=== PATIENT | male | born 1990 | race Caucasian/White ===

== ENCOUNTER 2019-08-03 22:26 | Inpatient (IN) ==
[2019-08-03] MEDS ORDERED: LORazepam 2 MG/ML VIAL (IM USE) IM STA (23:14)
[2019-08-03] MEDS ORDERED: HALOPERIDOL LACTATE 5 MG/ML 1 ML VIAL IM STA (23:14)
[2019-08-03 23:17] LABS: Appearance Urine Cloudy (Clear); Bilirubin Urine Negative (Negative); Blood Urine Negative (Negative); Color Urine Dark Yellow; Glucose Urine UA Negative (Negative); Ketones Urine 2+ (Negative); Leukocyte Esterase Urine Negative (Negative); Nitrite Urine Negative (Negative); Protein Urine Negative (Negative); RBC Urine Automated 0-4 /hpf (0-4); Specific Gravity Urine 1.017 (1.000-1.030); Urobilinogen Urine Negative (Negative); pH Urine 5.5 (4.5-7.5)
[2019-08-03 23:35] LABS: Basophils # (auto) 0.02 K/uL (0-0.2); Basophils % (auto) 0.2 %; Eosinophils # (auto) 0.01 K/uL (0-0.5); Eosinophils % (auto) 0.1 %; Hematocrit (blood only) 51.6 % (42-52); Immature Granulocytes # (auto) 0.02 K/uL (0.00-0.02); Immature Granulocytes % (auto) 0.2 %; Lymphocytes # (auto) 2.52 K/uL (1.2-3.4); Lymphocytes % (auto) 23.3 %; Mean Corpuscular Hemoglobin 32.4 pg (25-34); Mean Corpuscular Hgb Conc 34.9 g/dL (32-36); Mean Corpuscular Volume 92.8 fL (80-100); Mean Platelet Volume 9.7 fL (7.4-10.4); Monocytes # (auto) 1.08 K/uL (0.11-0.59); Neutrophils # (auto) 7.17 K/uL (1.4-6.5); Neutrophils % (auto) 66.2 %; Platelet Count 322 K/uL (130-400); RDW Coefficient of Variation 13.6 % (11.5-14.5); Red Blood Count 5.56 M/uL (4.7-6.1); White Blood Count 10.82 K/uL (4.8-10.8)
[2019-08-03 23:54] LABS: Amphetamines+Metham, Urine Pos (Neg); Barbiturates, Urine Neg (Neg); Benzodiazepine, Urine Neg (Neg); Cocaine, Urine Neg (Neg); MDMA (Ecstacy), Urine Pos (Neg); Methadone, Urine Neg (Neg); Mucus Urine Present (None Prsent); Opiate, Urine Neg (Neg); Phencyclidine, Urine Neg (Neg)
[2019-08-03 23:54] LABS: Alanine Aminotransferase 72 U/L (12-78); Albumin Level 4.8 gm/dl (3.4-5.0); Aspartate Aminotransferase 32 U/L (15-37); BUN Creatinine Ratio 11.9 (10-20); Blood Urea Nitrogen 12 mg/dl (7-18); Calcium 9.5 mg/dl (8.5-10.1); Carbon Dioxide 26 mmol/L (21-32); Chloride 102 mmol/L (98-107); Est GFR (African American) 116.8; Est GFR (Non-African American) 100.8; Glucose 104 mg/dl (70-99); Potassium 3.9 mmol/L (3.5-5.1); Sodium 136 mmol/L (136-145)
[2019-08-03 23:55] LABS: Bacteria Urine Automated 1+ (Negative); Calcium Oxalate Crystals Urine Present (None Prsent)
[2019-08-04 00:05] LABS: Albumin Globulin Ratio 1.1 (0.9-2); Alkaline Phosphatase 58 U/L (45-117); Bilirubin,Total 0.8 mg/dl (0.2-1); Globulin 4.2 gm/dl (2.5-4.0)
[2019-08-04 00:08] LABS: Acetaminophen < 2 ug/ml (10-30); Salicylate 3.2 mg/dl (2.8-20)
[2019-08-04] MEDS ORDERED: LORazepam 2 MG/4 ML VIAL IV STA ×3 (00:12→17:27)
[2019-08-04] MEDS ORDERED: DiphenhydrAMINE HCL 50 MG/ML VIAL IV STA (00:12)
[2019-08-04] MEDS ORDERED: SODIUM CHLORIDE 0.9% 1000ML 2,000 ML IV ONE (00:12)
[2019-08-04 00:40] LABS: Creatine Kinase 110 U/L (39-308)
--- NOTE | 2019-08-04 05:51 | Emergency Department Note ---
Entered by Seun Freedman acting as a scribe for ED Provider Note Name: Durga Winn Age: 29 Arrives Via: Walk in Informant: Patient CC: Mental health evaluation HPI: The patient is a 29 year old male who presents to the emergency department with a request for a mental health evaluation occurring tonight. The patient states that he has been sober for the last two years, except for the last few months when he has been intermittently using drugs. He notes that he is unsure which drugs he has been taking, but he reports that he last used five days ago. The patient states that police arrived at his house tonight because a friend reported that he tried to kill himself before. He notes that he was given carfentanyl to use in order to kill himself on the . He reports that people are out to get him, but he states that he does not want to say why. The patient states that he drank three beers today. ROS: See above HPI for pertinent positives & negatives. A total of 10 systems reviewed and were otherwise negative. Past Medical History: Denies Past Surgical History: Denies Family History: Denies Social History: Drinks alcohol, uses drugs, uses cigarettes Home Medications: None Allergies: Azithromycin Physical: Vitals: BP 154/93, Pulse 131, Resp 20, Temp 97.7 F, O2 sat 99 Exam: GENERAL: Patient is acutely agitated appearing, tangential, severely paranoid. EYES: No scleral icterus, unremarkable pupils. ENT: Mucous membranes moist, no nasal congestion. NECK: No masses appreciated, no meningismus, trachea is midline. RESPIRATORY: No dyspnea. Clear to auscultation and equal bilaterally. No wheeze, no rhonchi. CARDIOVASCULAR: Tachycardic and regular rhythm. No murmurs, rubs, gallops appreciated. GASTROINTESTINAL: Abdomen soft, non-tender, no peritonitis. Bowel sounds positive. No masses appreciated. BACK: No midline tenderness, no CVA tenderness EXTREMITIES: Normal motion all extremities, no cyanosis, no edema. NEUROLOGIC: Alert and oriented, no acute motor or sensory deficits, no focal weakness, cranial nerves grossly intact. SKIN: No rash, no jaundice, no diaphoresis. Psych: Tangential, paranoid, agitated, denies depression but describes being depressed, denies SI but admits suicide attempt, denies hallucinations but is looking around the room at things that are not there. ED Course: Prior Medical Record, Triage/Nursing Notes, Medications, Allergies reviewed by Me 2304: The patient was evaluated in room A6. A complete history and physical exam was performed. 2348: I reevaluated and updated the patient. He adamantly refused Haldol, but he did calm down slightly with Ativan. Security is currently talking to him calmly. He continues to be paranoid. He is worried that the windows are not bullet proof and that security will not be able to protect him from the people who are coming to get him. 0010: I rechecked the patient. He states that his arms are itchy. He admits to taking a substance that is like meth but from a different country. 0027: I reevaluated and updated the patient. We convinced him to lay down in bed to get an IV. I discussed with nursing and security my concerns, and they feel as though he is currently cooperative enough and does not need to be sedated further. He continues to talk about people being after him, and he notes that if he lies flat, they will kill him. 0035: I rechecked the patient. He is currently crying in bed but will not state why. IV is in place and fluids are about to be started. 0131: I reevaluated the patient. 0306: I rechecked the patient. He is sleeping and not in any distress. 0354: I reevaluated the patient. He is sleeping. 0652: I rechecked the patient. He is still sleeping. 0730: The patient will be signed out to Dr. Ward pending mental health evaluation. Vital Signs: reviewed and remarkable for Tachycardia Labs: Reviewed and remarkable for +meth, +ecstacy, +marijuana, normal labs otherwise with normal CK Interventions: Saline Lock, Ativan 2mg PO, Ativan 2mg IV x 2, NSS Bolus 2 L IV Blood pressure: Normal. No Referral necessary Disposition: Signed out to Dr Ward pending awakening and mental health evaluation Differential: Mood Disorder, Overdose, Infectious, Electrolyte Abnormality, Cardiac, Hepatic, Endocrine, Toxicologic, Neurologic, amongst other pathologies Entertained. Medical Decision Makin yr old male with no previous psych history in chart but he knows what haldol is arrives for acute agitation, paranoia, and psychosis. Patient is very on edge talking about multiple people coming to get him and is very worried that he is being hunted. He is denying recent drug use but also admits he has been doing drugs. Patient had to have constant re-direction and initially haldol ordered with ativan though this was held as he very slowly calmed down, though this took multiple rounds of ativan. IV placed for access as well as to hydrate patient further. Drug Urine positive for meth, ecstacy and marijuana. He clearly exhibits evidence of methamphetamine overdose. Eventually fell asleep and vitals improved. Multiple rechecks throughout night and sleeping after this. Will await him awakening for further mental health evaluation. At this time 302 petition remains but will need to see if this was purely drug induced psychosis or if there is other issue as well. I do not feel this is meningitis and he is not in rhabdo at this time. Signed out to Dr Ward pending further evaluation. Impression: Acute psychosis, acute agitation, acute paranoia, dehydration, methamphetamine abuse Dylna Peng MD The scribe's documentation has been prepared under my direction and personally reviewed by me in its entirety. I confirm that the note above accurately reflects all work, treatment, procedures, and medical decision making performed by me. Impression & Plan Acute psychosis, Agitation, Acute paranoia, Dehydration, Methamphetamine abuse Past Med/Surg History Family History (Updated 08/03/19 @ 23:56 by Seun Freedman) Other No significant family history Social History (Updated 08/03/19 @ 23:56 by Seun Freedman) Preferred Language: Occitan Feels Safe at Home: Yes Smoking Status: Current every day smoker Hx Alcohol Use: Yes Hx Substance Use: Yes Results & Data Vital Signs Vital Signs - 24 hr 08/03/19 22:30 08/04/19 00:16 08/04/19 00:48 Temperature 36.5 C Temperature Source Oral Pulse Rate 131 H 127 H Pulse Rate [Finger] 163 H Pulse Rate from SpO2 Sensor 258 H Respiratory Rate 20 20 21 Respiratory Effort / Characteristics Non-Labored Spontaneous Respiratory Depth Normal Normal Blood Pressure 154/93 H 164/99 H Blood Pressure [Left Arm] 144/80 H Blood Pressure Mean 113 126 Blood Pressure Mean [Left Arm] 101 Blood Pressure Position Sitting Pulse Oximetry 99 99 99 Oxygen Delivery Method Room Air Room Air Room Air Sepsis Recent Fever Within 48 Hours No Sepsis New/Unexplained Change in Mental Status No Sepsis Action Taken by Nursing No Action Required 08/04/19 01:01 08/04/19 02:30 08/04/19 03:00 Temperature Temperature Source Pulse Rate 108 H 106 H 105 H Pulse Rate [Finger] Pulse Rate from SpO2 Sensor 109 H 105 H 105 H Respiratory Rate 18 26 H 27 H Respiratory Effort / Characteristics Respiratory Depth Blood Pressure 130/92 103/54 L 92/54 L Blood Pressure [Left Arm] Blood Pressure Mean 98 75 64 Blood Pressure Mean [Left Arm] Blood Pressure Position Pulse Oximetry 100 96 96 Oxygen Delivery Method Room Air Room Air Room Air Sepsis Recent Fever Within 48 Hours Sepsis New/Unexplained Change in Mental Status Sepsis Action Taken by Nursing 08/04/19 03:30 08/04/19 04:00 08/04/19 04:30 Temperature Temperature Source Pulse Rate 100 H Pulse Rate [Finger] Pulse Rate from SpO2 Sensor 100 H Respiratory Rate 24 Respiratory Effort / Characteristics Respiratory Depth Blood Pressure 108/54 L 104/56 L 108/56 L Blood Pressure [Left Arm] Blood Pressure Mean 70 81 90 Blood Pressure Mean [Left Arm] Blood Pressure Position Pulse Oximetry 96 Oxygen Delivery Method Sepsis Recent Fever Within 48 Hours Sepsis New/Unexplained Change in Mental Status Sepsis Action Taken by Nursing 08/04/19 05:00 08/04/19 05:30 08/04/19 06:00 Temperature Temperature Source Pulse Rate Pulse Rate [Finger] Pulse Rate from SpO2 Sensor Respiratory Rate Respiratory Effort / Characteristics Respiratory Depth Blood Pressure 109/60 93/41 L 94/53 L Blood Pressure [Left Arm] Blood Pressure Mean 80 70 68 Blood Pressure Mean [Left Arm] Blood Pressure Position Pulse Oximetry Oxygen Delivery Method Sepsis Recent Fever Within 48 Hours Sepsis New/Unexplained Change in Mental Status Sepsis Action Taken by Longterm Medications Current Medication List: was personally reviewed by me Laboratory Data Attestation: I reviewed the patient's lab results. Result diagrams: 08/03/19 23:17 08/03/19 23:17 Lab Results 08/03/19 08/03/19 08/03/19 Range/Units 22:52 22:52 23:17 WBC 10.82 H (4.8-10.8) K/uL RBC 5.56 (4.7-6.1) M/uL Hgb 18.0 (14.0-18.0) g/dL Hct 51.6 (42-52) % MCV 92.8 (80-100) fL MCH 32.4 (25-34) pg MCHC 34.9 (32-36) g/dL RDW Std Deviation 46.0 (36.4-46.3) fL RDW Coeff of Clement 13.6 (11.5-14.5) % Plt Count 322 (130-400) K/uL MPV 9.7 (7.4-10.4) fL Immature Gran % (Auto) 0.2 % Neut % (Auto) 66.2 % Lymph % (Auto) 23.3 % Sanders % (Auto) 10.0 % Eos % (Auto) 0.1 % Baso % (Auto) 0.2 % Immature Gran # (Auto) 0.02 (0.00-0.02) K/uL Neut # (Auto) 7.17 H (1.4-6.5) K/uL Lymph # (Auto) 2.52 (1.2-3.4) K/uL Sanders # (Auto) 1.08 H (0.11-0.59) K/uL Eos # (Auto) 0.01 (0-0.5) K/uL Baso # (Auto) 0.02 (0-0.2) K/uL Sodium (136-145) mmol/L Potassium (3.5-5.1) mmol/L Chloride (98-107) mmol/L Carbon Dioxide (21-32) mmol/L Anion Gap (3-11) BUN (7-18) mg/dl Creatinine (0.6-1.4) mg/dl Est Cr Clr Drug Dosing Est GFR ( Amer) Est GFR (Non-Af Amer) BUN/Creatinine Ratio (10-20) Glucose (70-99) mg/dl Calcium (8.5-10.1) mg/dl Total Bilirubin (0.2-1) mg/dl AST (15-37) U/L ALT (12-78) U/L Alkaline Phosphatase (45-117) U/L Total Creatine Kinase (39-308) U/L Total Protein (6.4-8.2) gm/dl Albumin (3.4-5.0) gm/dl Globulin (2.5-4.0) gm/dl Albumin/Globulin Ratio (0.9-2) TSH (0.300-4.500) uIu/ml Urine Color Dark Yellow Urine Appearance Cloudy A (Clear) Urine pH 5.5 (4.5-7.5) Ur Specific [place] 1.017 (1.000-1.030) Urine Protein Negative (Negative) Urine Glucose (UA) Negative (Negative) Urine Ketones 2+ H (Negative) Urine Blood Negative (Negative) Urine Nitrite Negative (Negative) Urine Bilirubin Negative (Negative) Urine Urobilinogen Negative (Negative) Ur Leukocyte Esterase Negative (Negative) Urine WBC (Auto) 1-5 (0-5) /hpf Urine RBC (Auto) 0-4 (0-4) /hpf U Hyaline Cast (Auto) 5-10 H (0-5) /lpf U Epithel Cells (Auto) 10-20 H (0-5) /lpf Urine Bacteria (Auto) 1+ H (Negative) Calcium Oxalate Crystal Present A (None Prsent) Granular Casts 1-5 H (0) /lpf Urine Mucus Present A (None Prsent) Salicylates (2.8-20) mg/dl Urine Opiates Screen Neg (Neg) Ur Methadone, Qual Neg (Neg) Acetaminophen (10-30) ug/ml Urine Barbiturates Neg (Neg) Ur Phencyclidine (PCP) Neg (Neg) U Amphetamin/Meth Scrn Pos H (Neg) MDMA (Ecstasy) Screen Pos H (Neg) U Benzodiazepines Scrn Neg (Neg) Ur Cocaine Metabolite Neg (Neg) U Marijuana (THC) Screen Pos H (Neg) Ethyl Alcohol mg/dL (0-3) mg/dl 08/03/19 08/03/19 08/03/19 Range/Units 23:17 23:17 23:17 WBC (4.8-10.8) K/uL RBC (4.7-6.1) M/uL Hgb (14.0-18.0) g/dL Hct (42-52) % MCV (80-100) fL MCH (25-34) pg MCHC (32-36) g/dL RDW Std Deviation (36.4-46.3) fL RDW Coeff of Clement (11.5-14.5) % Plt Count (130-400) K/uL MPV (7.4-10.4) fL Immature Gran % (Auto) % Neut % (Auto) % Lymph % (Auto) % Sanders % (Auto) % Eos % (Auto) % Baso % (Auto) % Immature Gran # (Auto) (0.00-0.02) K/uL Neut # (Auto) (1.4-6.5) K/uL Lymph # (Auto) (1.2-3.4) K/uL Sanders # (Auto) (0.11-0.59) K/uL Eos # (Auto) (0-0.5) K/uL Baso # (Auto) (0-0.2) K/uL Sodium 136 (136-145) mmol/L Potassium 3.9 (3.5-5.1) mmol/L Chloride 102 (98-107) mmol/L Carbon Dioxide 26 (21-32) mmol/L Anion Gap 7.0 (3-11) BUN 12 (7-18) mg/dl Creatinine 1.01 (0.6-1.4) mg/dl Est Cr Clr Drug Dosing Not Reportable Est GFR ( Amer) 116.8 Est GFR (Non-Af Amer) 100.8 BUN/Creatinine Ratio 11.9 (10-20) Glucose 104 H (70-99) mg/dl Calcium 9.5 (8.5-10.1) mg/dl Total Bilirubin 0.8 (0.2-1) mg/dl AST 32 (15-37) U/L ALT 72 (12-78) U/L Alkaline Phosphatase 58 (45-117) U/L Total Creatine Kinase 110 (39-308) U/L Total Protein 9.0 H (6.4-8.2) gm/dl Albumin 4.8 (3.4-5.0) gm/dl Globulin 4.2 H (2.5-4.0) gm/dl Albumin/Globulin Ratio 1.1 (0.9-2) TSH 2.660 (0.300-4.500) uIu/ml Urine Color Urine Appearance (Clear) Urine pH (4.5-7.5) Ur Specific [place] (1.000-1.030) Urine Protein (Negative) Urine Glucose (UA) (Negative) Urine Ketones (Negative) Urine Blood (Negative) Urine Nitrite (Negative) Urine Bilirubin (Negative) Urine Urobilinogen (Negative) Ur Leukocyte Esterase (Negative) Urine WBC (Auto) (0-5) /hpf Urine RBC (Auto) (0-4) /hpf U Hyaline Cast (Auto) (0-5) /lpf U Epithel Cells (Auto) (0-5) /lpf Urine Bacteria (Auto) (Negative) Calcium Oxalate Crystal (None Prsent) Granular Casts (0) /lpf Urine Mucus (None Prsent) Salicylates 3.2 (2.8-20) mg/dl Urine Opiates Screen (Neg) Ur Methadone, Qual (Neg) Acetaminophen < 2 L (10-30) ug/ml Urine Barbiturates (Neg) Ur Phencyclidine (PCP) (Neg) U Amphetamin/Meth Scrn (Neg) MDMA (Ecstasy) Screen (Neg) U Benzodiazepines Scrn (Neg) Ur Cocaine Metabolite (Neg) U Marijuana (THC) Screen (Neg) Ethyl Alcohol mg/dL < 3.0 (0-3) mg/dl Administered Medications Discontinued Medications Diphenhydramine HCl (Benadryl) 50 mg IV NOW STA Stop: 08/04/19 00:13 Last Admin: 08/04/19 00:40 Dose: 50 mg Documented by: [id number] Haloperidol Lactate (Haldol) 10 mg IM NOW STA Stop: 08/03/19 23:15 Last Admin: 08/04/19 00:41 Dose: Not Given Documented by: [id number] Sodium Chloride (Nss 1000ml) 2,000 mls @ 999 mls/hr IV .Q2H1M ONE Stop: 08/04/19 02:12 Last Infusion: 08/04/19 02:23 Dose: 0 mls/hr Documented by: [id number] Admin: 08/04/19 00:40 Dose: 999 mls/hr Documented by: [id number] Lorazepam (Ativan) 2 mg in 4 mls @ 4 mls/min IV NOW STA Stop: 08/04/19 00:13 Last Admin: 08/04/19 00:41 Dose: 4 mls/min Documented by: [id number] Lorazepam (Ativan) 2 mg in 4 mls @ 4 mls/min IV NOW STA Stop: 08/04/19 01:33 Last Admin: 08/04/19 01:42 Dose: 4 mls/min Documented by: [id number] Lorazepam (Ativan) 2 mg IM NOW STA Stop: 08/03/19 23:15 Last Admin: 08/03/19 23:34 Dose: 2 mg Documented by: [id number] Discharge Plan Visit Data Chief Complaint: Mental Health Evaluation Stated Complaint: MENTAL HEALTH EVAL- CLEARANCE ED Provider: Dylan Peng Discharge Problem: Acute psychosis, Agitation, Acute paranoia, Dehydration, Methamphetamine abuse Patient Disposition: Still a Patient Forms Stand Alone Forms: My [facility], Suicide Prevention Resources Prescriptions Prescriptions: No Action No Known Home Medications RF: 0 Referrals Referrals: PCP,NO [Primary Care Provider] - The scribe's documentation has been prepared under my direction and personally reviewed by me in its entirety. I confirm that the note above accurately reflects all work, treatment, procedures, and medical decision making performed by me.
--- NOTE | 2019-08-04 07:12 | Emergency Department Note ---
ED Visit Note Received patient in signout. History and physical verified by me. Awaiting for patient to awake for a psychiatric evaluation. Patient slept throughout the day and was signed out to Dr. Manzo at change shift. .
[2019-08-04] MEDS ORDERED: HALOPERIDOL LACTATE 5 MG/ML 1 ML VIAL IV STA (17:27)
[2019-08-04] MEDS ORDERED: SODIUM CHLORIDE 0.65% NA SOLN 45 ML (OCEAN) PRN (20:24)
[2019-08-04] MEDS ORDERED: LORazepam 1 MG TAB PO PRN (20:24)
[2019-08-04] MEDS ORDERED: MAGNESIUM HYDROXIDE SUSP 30 ML UDC PO PRN (20:24)
[2019-08-04] MEDS ORDERED: haloperidoL 5 MG TAB PO PRN (20:24)
[2019-08-04] MEDS ORDERED: BISMUTH SUBSALICYLATE PER ML OMNICELL CHARGE PO PRN (20:24)
[2019-08-04] MEDS ORDERED: ALUMINUM/MAGNESIUM SUSP 30 ML UDC PO PRN (20:24)
[2019-08-04] MEDS ORDERED: ACETAMINOPHEN 325 MG TAB PO PRN (20:24)
[2019-08-04] MEDS ORDERED: BENZTROPINE MESYLATE 1 MG TAB PO PRN (20:24)
--- NOTE | 2019-08-04 21:19 | Emergency Department Note ---
Entered by Angel Aviles acting as a scribe for Cole Manzo DO ED Visit Note The patient was signed out to me by Dr. Ward. 1720: I evaluated the patient. I updated him at bedside. He is extremely paranoid, agitated, and is threatening. He was evaluated independently by our psychiatric care worker who also recommended admission. He has limited insight into his psychiatric disorder at this time. Through to warrant was in place and was signed as he did not want to come in and with his paranoia, agitation I did not believe that he would be able to care for himself. He was updated at bedside resting comfortably and was taken to 3 S. . The scribe's documentation has been prepared under my direction and personally reviewed by me in its entirety. I confirm that the note above accurately reflects all work, treatment, procedures, and medical decision making performed by me.
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
[2019-08-05] MEDS: NICOTINE 14 MG/24 HR PATCH TD SCH (11:48)
--- NOTE | 2019-08-06 11:26 | Discharge Summary ---
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 Studies at Discharge: No Stand-Alone Forms: [facility], Smoking Cessation, Suicide Prevention Resources Medications and DC Order Prescriptions: No Action No Known Home Medications RF: 0 Discharge Orders: Discharge Order (Routine); Ordered 08/06/19 Ordered By: Montana Malin Admission Data Admit Date/Time: 08/04/19 20:25 Attending Provider: Jaquelin Aguilar Admit Provider: Jaquelin Aguilar Primary Care Provider: PCP,NO Coding [place] [address] D/C day mgmt > 30 min Patient Type Established History Expanded Problem Focused Exam Expanded Problem Focused Medical Decision Making Moderate Complexity Diagnoses Acute psychosis F23 Methamphetamine abuse F15.10 Cannabis abuse F12.10 Abnormal urinalysis R82.90 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
[2019-08-06] MEDS: NICOTINE 14 MG/24 HR PATCH TD SCH (11:42)
[2019-08-06] MEDS ORDERED: DiphenhydrAMINE HCL 50 MG/ML VIAL IM STA (11:52)
[2019-08-06] MEDS ORDERED: DiphenhydrAMINE HCL 50 MG/ML VIAL ONE (11:53)
[2019-08-08 08:15] LABS: Amphetamine Urine, Confirm >15000 ng/mL (<250); MDA negative; MDEA negative; MDMA (Ecstasy) Urine, Confirm negative; Marijuana Quant, GCMS Urine 183 ng/mL (<5); Methamphetamine, Ur Confirm >15000 ng/mL (<250)
== END 2019-08-06 15:30 | disposition home or self-care (01) | DRG 897 ==
LOC: ED 22:26 → 3S 08-04 20:25